=== PATIENT | female | born 1995 | race Caucasian/White ===

== ENCOUNTER 2019-08-13 21:56 | Emergency (ER) | payer OTHER ==
[~2019-08-13] VITALS: Ht 152.4 cm; Wt 102.5 kg
[~2019-08-13 21:56] MED LIST: FALMINA1 EACH PO; IMITREX5 MG NAS; ONDANSETRON ODT4 MG SL
--- OUTSIDE RECORDS SUMMARY | 2019-08-13 22:00 | XMS ---
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 ESally VISIT COUNT (12 MO.) [address] [place] [address] TOTAL 8 NOTE: Visits indicate total known visits. ED/UCC VISIT TRACKING (12 MO.) 08/13/2019 21:58 [facility] [place] TYPE: Emergency COMPLAINT: - BACK PAIN 07/30/2019 23:11 [facility] [place] TYPE: Emergency DIAGNOSES: - Pruritus, unspecified - ITCHING AND BUMPS ON BODY FOR 2 WEEKS 05/22/2019 13:24 [facility] [place] TYPE: Emergency DIAGNOSES: - Mild intermittent asthma, uncomplicated - DIFFICULTY BREATHING COUGH - Acute frontal sinusitis, unspecified 05/21/2019 22:18 [employer] [facility] [place] TYPE: Emergency DIAGNOSES: - COUGH AND VOMITING 05/04/2019 16:18 [employer] [facility] [facility] [place] TYPE: Emergency DIAGNOSES: - Streptococcal pharyngitis - MIGRAINE, CHEST PAIN WITH COUGH 03/01/2019 10:08 [employer] [facility] [place] TYPE: Emergency DIAGNOSES: - POSS BROKEN R HAND - Contusion of right hand, initial encounter 10/28/2018 11:16 [facility] [employer] [place] TYPE: Emergency DIAGNOSES: - Schizoaffective disorder, bipolar type - MEDICAL CLEARANCE/EVALUATION 10/08/2018 10:21 [facility] [place] TYPE: Emergency DIAGNOSES: - DIFFICULTY BREATHING - Unspecified asthma with (acute) exacerbation INPATIENT VISIT TRACKING (12 MO.) No inpatient visits to display in this time frame [email or web address]
[2019-08-13] MEDS ORDERED: SEROQUEL100 MG PO (22:20)
[2019-08-13] MEDS ORDERED: CYCLOBENZAPRINE10 MG PO ×2 (22:21→22:33)
[2019-08-13] MEDS ORDERED: BUSPIRONE HCL10 MG PO (22:21)
[2019-08-13] MEDS ORDERED: VENTOLIN HFA18 GM INH (22:21)
== END 2019-08-13 23:11 | disposition home or self-care (01) ==
LOC: ED 21:56
DX: M54.5 Low back pain (principal); G89.29 Other chronic pain; F17.200 Nicotine dependence, unspecified, uncomplicated; Z79.899 Other long term (current) drug therapy
CPT/HCPCS: 99283